=== PATIENT | male | born 1995 | race Caucasian/White ===

== ENCOUNTER 2023-12-04 13:23 | Emergency (ER) | payer BC, SELFPAY ==
[2023-12-04] VITALS (10 sets, daily range): BP systolic 119–140; BP diastolic 61–72; BMI 23.6
[2023-12-04 13:57] LABS: % Basophils 0.7 % (0-2); % Eosinophils 1.7 % (0-6); % Immature Granulocytes 0.2 % (0-0.5); % Lymphocytes 25.2 % (20.5-51.1); % Monocytes 9.4 % (1.7-9.3); % Neutrophils 62.8 % (42.2-75.2); Absolute Eosinophils 0.1 10^3/uL (0-0.7); Absolute Monocytes 0.4 10^3/uL (0.1-0.6); Absolute Neutrophils 2.6 10^3/uL (1.4-6.5); Hematocrit 44.3 % (39.0-52.0); Hemoglobin 14.9 g/dL (13.0-18.0); Mean Corp Hgb Conc. 33.6 g/dL (33.0-37.0); Mean Corpuscular Hgb 29.4 pg (27.0-31.0); Mean Corpuscular Volume 87.5 fL (80.0-94.0); Mean Platelet Volume 11.9 fL (7.4-10.4); Nucleated Red Blood Cells % 0 % (-); Platelet Count 184 10^3/uL (130-400); Red Blood Cell Count 5.06 10^6/uL (4.70-6.10); Red Cell Dist. Width 11.2 % (11.5-14.5); White Blood Cell Count 4.1 10^3/uL (4.8-10.8)
[2023-12-04 14:12] LABS: ALT (SGPT) 28 U/L (0-50); AST (SGOT) 32 U/L (17-59); Albumin 5.1 g/dl (3.5-5.0); Alkaline Phosphatase 73 U/L (38-126); Blood Urea Nitrogen 14 mg/dl (9-20); Calcium 10.1 mg/dl (8.4-10.2); Carbon Dioxide 28 mmol/L (22-30); Chloride 101 mmol/L (98-107); Glucose 93 mg/dl (70-99); Lipase 45 U/L (23-300); Potassium 4.4 mmol/L (3.5-5.1); Sodium 141 mmol/L (135-145); Total Protein 8.1 g/dl (6.3-8.2); Urine Albumin Negative (Neg - Trace); Urine Bilirubin Negative (Negative); Urine Character Clear (Clear); Urine Color Yellow; Urine Glucose Negative (Negative); Urine Ketone Negative (Negative); Urine Leukocyte Negative (Negative); Urine Nitrite Negative (Negative); Urine Occult Blood Negative (Negative); Urine Urobilinogen Negative (Neg - 1+); Urine pH 6.5 (5.0-9.0); eGFR > 60.00
--- NOTE | 2023-12-04 16:02 | ED.GENMED ---
History of Present Illness
<Milagro Lyn MD, Resident - Last Filed: 12/04/23 19:47>
General
Chief Complaint: Abdominal Pain
Source: patient
Time Seen by Provider: 12/04/23 15:02
History of Present Illness
History of Present Illness:
28-year-old male, James with no significant past medical history presented to the ER reporting upper abdominal pain. Patient states the pain started 5 days ago, after having some leftovers for lunch from the day before. Patient reports the pain
is in the epigastric and right upper quadrant regions, 5/10 in intensity, cramp-like, and intermittently radiates to the upper chest, aggravated after eating meals. Pain is not related to the type of food he eats, patient reports the pain is less
intense while lying down in bed. Patient reports the pain is associated with nausea after eating food, and diarrhea for the initial 2 days. He also noticed some streaks of blood in the stool for the 1st couple of days at the start of symptoms.
Initially he thought the pain is related to acid reflux and took Tums, moderately helped, but the pain persisted. Patient reports having fatigue and decreased appetite. Patient reports no fevers/chills, swallowing difficulty, recent weight
changes, chest pain, palpitations, SOB, bladder disturbances. Patient has a history of anal fissures. No history of alcohol abuse, smoking. Today the patient woke up with pain, went to the urgent care who advised him to go to the ER for further
evaluation and management.
Review of Systems
<Milagro Lyn MD, Resident - Last Filed: 12/04/23 19:47>
Review of Systems
All Other Systems: ROS reviewed and negative except as documented in HPI and ROS
Phy Exam
<Milagro Lyn MD, Resident - Last Filed: 12/04/23 19:47>
Physical Exam
Physical Exam:
GEN: Well appearing, NAD, WDWN
Eyes: PERRLA, EOMs intact, no scleral icterus
HENT: NCAT, oral mucosa moist, no JVD, no cervical adenopathy.
Lungs: CTAB, no wheezes, rales, rhonchi, normal chest wall excursion
Cardiac: RRR, no M/R/G, no peripheral edema. Radial pulses 2+ bilat
Abdomen: S, tenderness to palpation in the epigastric, right upper quadrant, ND, NABS, no masses or hepatosplenomegaly, Marie sign negative.
Neuro: AO x 3, no focal deficits to BUE/BLE, normal sensation throughout
Skin: No rashes, petechiae. Normal color, no pallor or jaundice.
Psych: Calm, cooperative, proper hygiene
Course
<[facility] Joe Lyn MD, Resident - Last Filed: 12/04/23 19:47>
Orders/Labs/Results
Orders:
Orders
12/04/23 13:32
IV Insert/Care/Rem.- Treatment PRN
Straight cath- Treatment ONCE
12/04/23 13:39
Complete Blood Count/With Diff Urgent
Comprehensive Metabolic Panel Urgent
Lipase Urgent
Urinalysis Reflex To Culture Urgent
Date Specimen was Collected: 12/04/23
Time Specimen was Collected: 13:33
12/04/23 15:59
Mag Hydrox/Al Hydrox/Simeth [Maalox] 30 ml PO NOW STA
US Abdomen Complete/Upper Urgent
Comment:
Reason For Exam: abdominal pain
12/04/23 16:05
Acetaminophen [Tylenol] 650 mg PO NOW STA
12/04/23 16:54
Ova & Parasites Giardia/Crypto AG [Giardia/Cryptosporidium Ag] Urgent
[facility] Source: Feces/Stool
Specimen Description:
Date Specimen was Collected: 12/04/23
Time Specimen was Collected: 16:05
Stool Culture Urgent
[facility] Source: Feces/Stool
Specimen Description:
Date Specimen was Collected: 12/04/23
Time Specimen was Collected: 16:05
Stool For WBC Urgent
[facility] Source: Feces/Stool
Specimen Description:
Date Specimen was Collected: 12/04/23
Time Specimen was Collected: 16:05
Abnormal Lab Results
12/04/23
13:39
WBC 4.1 L 10^3/uL
(4.8-10.8)
RDW 11.2 L %
(11.5-14.5)
MPV 11.9 H fL
(7.4-10.4)
Absolute Lymphs (auto) 1.0 L 10^3/uL
(1.2-3.4)
Monocytes % 9.4 H %
(1.7-9.3)
Albumin 5.1 H g/dl
(3.5-5.0)
12/04/23 13:39
12/04/23 13:39
Vital Signs
Initial and Last Documented VS:
Initial Vital Signs
Temp Pulse Resp BP Pulse Ox
98.2 F 53 18 122/65 98
12/04/23 13:29 12/04/23 13:29 12/04/23 13:29 12/04/23 13:29 12/04/23 13:29
Last Documented Vital Signs
Temp Pulse Resp BP Pulse Ox
98.5 F 54 15 123/61 99
12/04/23 14:28 12/04/23 19:00 12/04/23 19:00 12/04/23 19:00 12/04/23 19:00
<Maria Esther Kirk MD - Last Filed: 12/04/23 19:33>
Orders/Labs/Results
Orders:
Orders
12/04/23 13:32
IV Insert/Care/Rem.- Treatment PRN
Straight cath- Treatment ONCE
12/04/23 13:39
Complete Blood Count/With Diff Urgent
Comprehensive Metabolic Panel Urgent
Lipase Urgent
Urinalysis Reflex To Culture Urgent
Date Specimen was Collected: 12/04/23
Time Specimen was Collected: 13:33
12/04/23 15:59
Mag Hydrox/Al Hydrox/Simeth [Maalox] 30 ml PO NOW STA
US Abdomen Complete/Upper Urgent
Comment:
Reason For Exam: abdominal pain
12/04/23 16:05
Acetaminophen [Tylenol] 650 mg PO NOW STA
12/04/23 16:54
Ova & Parasites Giardia/Crypto AG [Giardia/Cryptosporidium Ag] Urgent
[facility] Source: Feces/Stool
Specimen Description:
Date Specimen was Collected: 12/04/23
Time Specimen was Collected: 16:05
Stool Culture Urgent
[facility] Source: Feces/Stool
Specimen Description:
Date Specimen was Collected: 12/04/23
Time Specimen was Collected: 16:05
Stool For WBC Urgent
[facility] Source: Feces/Stool
Specimen Description:
Date Specimen was Collected: 12/04/23
Time Specimen was Collected: 16:05
Abnormal Lab Results
12/04/23
13:39
WBC 4.1 L 10^3/uL
(4.8-10.8)
RDW 11.2 L %
(11.5-14.5)
MPV 11.9 H fL
(7.4-10.4)
Absolute Lymphs (auto) 1.0 L 10^3/uL
(1.2-3.4)
Monocytes % 9.4 H %
(1.7-9.3)
Albumin 5.1 H g/dl
(3.5-5.0)
12/04/23 13:39
12/04/23 13:39
Vital Signs
Initial and Last Documented VS:
Initial Vital Signs
Temp Pulse Resp BP Pulse Ox
98.2 F 53 18 122/65 98
12/04/23 13:29 12/04/23 13:29 12/04/23 13:29 12/04/23 13:29 12/04/23 13:29
Last Documented Vital Signs
Temp Pulse Resp BP Pulse Ox
98.5 F 54 15 123/61 99
12/04/23 14:28 12/04/23 19:00 12/04/23 19:00 12/04/23 19:00 12/04/23 19:00
<Milagro Lyn MD, Resident - Last Filed: 12/04/23 19:47>
MDM/Problems Addressed
Differential Diagnosis Includes:
Gastroenteritis versus acute gastritis versus GERD versus cholecystitis versus pancreatitis
MDM/Problems Addressed:
Patient is afebrile.
Hemodynamically stable.
Symptomatic treatment with acetaminophen and Maalox.
CBC, CMP�unremarkable
Ultrasound abdomen �no acute abnormalities
Patient is able to tolerate per oral diet.
Patient is stable to be discharged home.
<Milagro Lyn MD, Resident - Last Filed: 12/04/23 19:47>
*Critical Care Note
Total Time (30-74mins, 75-104mins- exclusive of procedures): Not Applicable
ED Attending Note
<Milagro Lyn MD, Resident - Last Filed: 12/04/23 19:47>
-
Portions of this chart may have been created with voice recognition software.� Occasional wrong word or��sound alike� substitutions may have occurred due to the inherent limitations of voice recognition software.
<Maria Esther Kirk MD - Last Filed: 12/04/23 19:33>
ED Attending Note
Patient seen and examined by attending physician: Yes
I performed a history and physical exam of patient and discussed management with resident, I reviewed resident's note and agree with documented findings and plan of care.: Yes
ED Attending Note:
Patient is a 28-year-old man with history of reflux presenting to the emergency department with abdominal pain. Patient states that 5 days ago he had some food then for the 2 days after that had nausea and diarrhea. It was nonbloody nonbilious.
Since then that has resolved but has been having for the right upper quadrant epigastric abdominal tenderness. It is constant but sometimes worse with food. He has noticed worsening reflux. No fevers or chills. No more nausea vomiting. No
diarrhea. No recent travel. No history of gallbladder problems that he is aware of. No drug or alcohol use.
Vitals are unremarkable
GENERAL: in no acute distress
HEENT: normocephalic, extraocular movements intact, moist oral mucosa
NECK: normal inspection
RESPIRATORY: no respiratory distress, clear to auscultation bilaterally
CARDIOVASCULAR: regular rate and rhythm
ABDOMEN/: soft, non-distended, epigastric and right upper quadrant tenderness to palpation, no rebound or guarding
EXTREMITIES: non-tender, no edema/swelling
NEUROLOGIC: awake and alert, moves all extremities
SKIN: warm
28-year-old man with history of reflux presenting to the emergency department with abdominal pain for the past 5 days. Vitals are unremarkable and exam does show tenderness to palpation in the right upper quadrant epigastric region. Differential
consists of biliary pathology versus hepatitis versus reflux versus viral gastroenteritis. History and exam does not suggest acute abdomen. Will obtain blood work including CMP lipase. Will obtain right upper quadrant ultrasound. Will treat with
Tylenol and GI cocktail.
Blood work unremarkable. Urine negative. Ultrasound negative. Patient tolerating p.o. He is stable for discharge at this time.
Discharge Plan
Departure
Patient Disposition: Home (Routine Discharge)
Date of Disposition: 12/04/23
Time of Disposition: 19:16
Patient with high blood pressure during this ER visit?: No
Condition: Good
Discharge Problem:
Gastroenteritis
Instructions: Acid Reflux and GERD in Adults (DC), Abdominal Pain
Prescriptions:
No Action
No Current Medications
0
Referrals:
RAUL CARRILLO [Other]
Activity Restrictions/Additional Instructions:
Report back with acute worsening of the symptoms.
[id number] Pepcid as needed.
Advised to follow-up with primary care within a week.
Interventions
Interventions:
*Risk Screen - Suicide Last Done: 12/04/23 13:29
*General Assessment Last Done: 12/04/23 13:29
*Neglect/Abuse Screening Last Done: 12/04/23 13:29
ED- Fall Risk Assessment Last Done: 12/04/23 14:28
*ED COVID-19 Vaccine History Last Done: 12/04/23 14:28
YD-Pfylca-Ddhvhrdxky Assessment Last Done: 12/04/23 14:28
Discharge Date and Time
Print Language: PAKISTANI
[2023-12-04] MEDS: TYLENOL 650 MG PO (16:11)
[2023-12-04] MEDS: MAALOX 30 ML PO (16:11)
--- NOTE | 2023-12-04 16:47 | EDRN ---
the pt pressed the call childers and stated that he has to have a bowel movement, a hat was provided for the pt
--- NOTE | 2023-12-04 16:55 | EDRN ---
a stool sample was provided by the pt and the sample was collected and sent
== END 2023-12-04 20:04 | disposition home or self-care (01) ==
LOC: EMR 13:23
PROVIDERS: Emergency Medicine; EMERGENCY PHYSICIAN Student in an Organized Health Care Education/Training Program
DX: K52.9 Noninfective gastroenteritis and colitis, unspecified (principal)
CPT/HCPCS: 99284; 76700; 80053; 81003; 83690; 85025; 87045; 87046; 87328; 87329; 87427; 89055